=== PATIENT | female | born 1980 | race African-American/Black ===

== ENCOUNTER 2025-08-17 17:20 | Emergency (ER) | payer MEDICAID ==
[~2025-08-17] VITALS: Ht 160 cm; Wt 82.0 kg
[2025-08-17 17:21] VITALS: O2SAT 99
[2025-08-17] MEDS ORDERED: CLINDAMYCIN 600 MG in DEXTROSE 5% WATER 50 ML IV ONE (18:00)
[2025-08-17] MEDS: LORAZEPAM 2MG/ML UD SYRINGE IV NR (18:02)
[2025-08-17] MEDS: MORPHINE SULFATE 4 MG/ML INJ (FOR IV/IM USE) IV ONE (18:03)
[2025-08-17] MEDS: ONDANSETRON HCL 4MG/2ML INJ IV ONE (18:03)
[2025-08-17] MEDS: TETANUS, DIPHTHERIA, PERTUSSIS VAC/PF 0.5ML (>10YR OLD) IM ONE (18:04)
[2025-08-17] MEDS: CLINDAMYCIN 600MG PREMIX 50 ML IV NR (18:21)
[2025-08-17 18:59] LABS: BASOPHILS % 0.7 % (0.0-2.0); EOSINOPHILS % 1.3 % (0.0-5.0); HEMATOCRIT. 42.0 % (36.0-48.0); HEMOGLOBIN. 14.1 g/dL (12.0-16.0); LYMPHOCYTES % 35.3 % (20.0-50.0); MEAN PLATELET VOLUME 8.1 fl (7.4-10.4); MONOCYTES % 5.0 % (2.0-8.0); NEUTROPHILS % 57.7 % (40.0-76.0); PLATELET 303 x1000/uL (130-400); RED BLOOD CELL COUNT 4.40 mill/uL (4.2-5.4); RED CELL DISTRIBUTION WIDTH 14.7 % (11.6-14.6)
[2025-08-17 19:25] LABS: CREATININE 0.9 mg/dL (0.6-1.0)
[2025-08-17 19:26] LABS: PROTEIN TOTAL 7.2 g/dL (6.0-8.3); UREA NITROGEN BLOOD 9 mg/dL (9-23)
[2025-08-17 19:27] LABS: ASPARTATE AMINOTRANSFERASE 23 IU/L (<34)
[2025-08-17 19:28] LABS: BILIRUBIN TOTAL 0.3 mg/dL (0.1-1.0)
[2025-08-17] MEDS: HYDROMORPHONE HCL/PF 2MG/ML INJ IV ONE (21:16)
[2025-08-17] MEDS ORDERED: SULF1TAB48 MT (21:52)
[2025-08-17] MEDS ORDERED: IBUP-2028 MT (21:52)
[2025-08-17] MEDS ORDERED: CLIN-26 MT (21:52)
[2025-08-17] MEDS ORDERED: CHLO473M2 MT (21:52)
[2025-08-17] MEDS ORDERED: MUPI1OIN4 TP (21:55)
[2025-08-17] MEDS: KETOROLAC 30MG/ML VIAL IV ONE (22:06)
[2025-08-17 22:24] VITALS: BP 128/77; PULSE 68; RESP 16; TEMP 36.7; O2SAT 98
[2025-08-18] MEDS ORDERED: MUPIROCIN 2% OINT 15GM NS SCH (09:00)
== END 2025-08-17 22:31 | disposition home or self-care (01) ==
LOC: ER 17:20
DX: S01.511A Laceration without foreign body of lip, initial encounter (principal); S01.551A Open bite of lip, initial encounter; S01.85XA Open bite of other part of head, initial encounter; E11.9 Type 2 diabetes mellitus without complications; F41.9 Anxiety disorder, unspecified; Z88.0 Allergy status to penicillin; J45.909 Unspecified asthma, uncomplicated; W54.0XXA Bitten by dog, initial encounter; Y93.89 Activity, other specified; Y92.89 Other specified places as the place of occurrence of the external cause; Y99.8 Other external cause status
CPT/HCPCS: 80053; 85025; 36415; 70450; 70486; 90715; 99285; J3490 ×2; J1885; J2060; J2405; J1171; J2270; J7060; Z7610 ×2